=== PATIENT | male | born 1965 | race Caucasian/White ===

== ENCOUNTER 2020-12-13 17:27 | Inpatient (IN) | payer OTHER, SELFPAY ==
[2020-12-13] VITALS (8 sets, daily range): BP systolic 116–164; BP diastolic 71–95; PULSE 50–60; RESP 18–20; TEMP 36.4–36.9; O2SAT 93–100; BMI 28.5
--- NOTE | ~2020-12-13 | CT_ITS ---
EXAMINATION: CT ABDOMEN AND PELVIS WITHOUT CONTRAST CLINICAL INFORMATION: Left-sided flank pain. COMPARISON: None TECHNIQUE: Multidetector volumetric imaging was performed from the superior aspect of the liver through the pubic symphysis. Sagittal and coronal reformatted images were obtained on the technologist's workstation. This CT examination was performed using dose optimization techniques as appropriate, variously including the following: *Automated exposure control *Adjustment of mA and/or kV according to patient size (this includes techniques or standardized protocols for targeted exams where dose is matched to indication/reason for exam; i.e. extremities or head) *Use of iterative reconstruction technique DLP: 644 mGy-cm FINDINGS: LUNG BASES: The visualized lung bases are unremarkable. LIVER, GALLBLADDER, AND BILIARY TREE: The liver is normal in size, shape, and attenuation. No focal hepatic lesion or biliary ductal dilatation is present. The gallbladder is unremarkable with no evidence of radiopaque gallstones, gallbladder wall thickening, or obvious pericholecystic inflammatory changes. PANCREAS: Unremarkable. SPLEEN: Unremarkable. ADRENAL GLANDS: Unremarkable. KIDNEYS AND URETERS: Left kidney: There is moderate hydronephrosis of left kidney with distention renal pelvis calyces and left ureter to the ureterovesical junction. There is an obstructing 5 mm stone at the left ureterovesical junction. There is a less than 1 mm stone at the mid upper pole of left kidney. No additional calculi present. The left kidney is edematous due to the hydronephrosis with mild edema in the perinephric space is well. There is a cortical cyst at the midpole measuring 1.9 cm. Density 5 Hounsfield units. No follow-up imaging is recommended for simple renal cyst. Right kidney: The right kidney is normal in size and contour. No hydronephrosis. There are 3 small stones clustered at the lower pole measuring 1 to 3 mm in size. There are no ureteral stones. BLADDER: Unremarkable. GASTROINTESTINAL TRACT: There are a few scattered diverticula of the sigmoid colon. There is no diverticulitis. There is no bowel wall thickening /edema. There is no bowel obstruction. There is a moderate volume of stool in the colon. The appendix is nonvisualized . The small bowel loops are unremarkable. The stomach is normal. There is no hiatal hernia. ABDOMINAL WALL: No significant hernia is appreciated. LYMPH NODES: Normal. VASCULAR: Unremarkable. PELVIC VISCERA: Unremarkable. OSSEOUS STRUCTURES: Unremarkable. CT/CT abdomen pelvis wo con IMPRESSION: 1. Moderate hydronephrosis of the left kidney due to an obstructing 5 mm stone at the left ureterovesical junction. 2. Small nonobstructive renal stones in each kidney.
--- NOTE | ~2020-12-13 | XR_ITS ---
EXAMINATION: XR CHEST CLINICAL INFORMATION: Cough and sore throat COMPARISON: Chest x-ray on 04/07/2012 TECHNIQUE: Frontal view of the chest was obtained. FINDINGS: The cardiac silhouette is normal. There is mild diffuse bronchial wall thickening. There are no areas of consolidation. There are no pleural effusions or pneumothoraces. The bones and soft tissues are unremarkable for the patient's age. XR/XR chest 1V IMPRESSION: Wall thickening may be infectious and/or inflammatory in etiology.
[2020-12-13 17:57] LABS: COVID-19 Test Negative (Negative); IDNOW Serial# 9DD0AD1C
--- NOTE | 2020-12-13 18:39 | ED.ABDPAIN ---
HPI - Abdominal Pain General Chief Complaint: Abdominal Pain Stated Complaint: FLANK PAIN Time Seen by Provider: 12/13/20 18:00 Source: patient Mode of arrival: ambulatory Limitations: no limitations History of Present Illness HPI narrative: 55-year-old male presenting to the ED with his son at bedside who has a past medical history of diverticulitis and hemorrhoids presenting to the ED with complaints of left flank/left lower quadrant/left suprapubic pain abdominal pain that started a few hours prior to arrival with associated nausea/vomiting and diarrhea. He also reports a sore throat and productive cough for the past week. Denies having the COVID vaccine. Denies any fevers, chills, dizziness, headaches, neck pain/stiffness, chest pain or shortness of breath consciousness or syncope orthopnea, palpitations, trouble swallowing or breathing, rashes, back pain, dysuria, hematuria, abnormal penile discharge, black or bloody stools, recent travel or sick contacts or any other symptoms complaints or concerns at this time. MD elicited complaint: abdominal pain and flank pain Pertinent past history: diverticulitis Onset (ago): hour(s) (Prior to arrival) Pain Consistency: intermittent Location: L flank Severity: severe Quality: stabbing, aching and sharp Radiation: LLQ and suprapubic Exacerbating factors: nothing Relieving factors: nothing Associated symptoms: nausea, vomiting, diarrhea and other (Sore throat and cough) Related Data Allergies Allergy/AdvReac Type Severity Reaction Status Date / Time No Known Allergies Allergy Verified 12/13/20 17:33 Review of Systems Review of Systems Constitutional : No Weight loss, No Fever, No Chills, No Night Sweats, No Fatigue, NoMalaise ENT/Mouth: Positive sore throat, No ear pain, No Difficulty swallowing Cardiovascular : No Chest Pain, No SOB, No Dyspnea on Exertion, No Orthopnea, NoEdema, No Palpitations Respiratory : Positive Cough, positive Sputum, No Wheezing, No Dyspnea Gastrointestinal : Positive Nausea, positive Vomiting, positive abdominal pain, positive Diarrhea, No blood streaked emesis, No coffee-ground emesis, No gross hematemesis, No blood streak stool, No gross hematochezia, No Melena Genitourinary : No irregular bleeding, No Dysuria, No Urinary Frequency, No Hematuria,No Urinary Incontinence, No Urgency, No Flank Pain Musculoskeletal : No joint pain, No Myalgias, No Joint Swelling Skin : No Skin Lesions, No rash Neuro : No Weakness, No Numbness, No Paresthesias, No Loss of Consciousness, NoDizziness, No Headache Psych : No Social Issues, Heme/Lymph: No Bruising, No Bleeding,No Lymphadenopathy Endocrine : No Polyuria, No Polydipsia, No Temperature Intolerance Yes all other systems are reviewed and are negative Physical Exam Vital Signs: Vital Signs: Last Vital Signs Temp 98.4 F 12/13/20 19:41 Pulse 52 12/13/20 19:41 Resp 20 12/13/20 19:41 BP 133/78 12/13/20 19:41 Pulse Ox 95 12/13/20 19:41 Body Mass Index 28.5 vital signs have been reviewed as normal and appeared to be correct. Blood pressure normal. Heart rate normal. Respiration rate normal. Temperature normal. Oxygen saturation normal. Appearance: Alert. Oriented X3. No acute distress. Head: Normal external exam. Normocephalic. Eyes: PERRLA. EOMI. Conjunctiva and sclera normal. Eyelids normal. ENT: Pharynx normal. Uvula midline. Moist mucous membranes. No trismus noted. No drooling noted. No muffled voice noted. Neck: Normal inspection. Neck supple. FROM. No adenopathy. No meningeal signs. CVS: Normal heart rate and rhythm. Heart sound normal. No murmurs noted. Pulses normal throughout. Respiratory: No respiratory distress. Painless inspiration. Breath sounds normal. No wheezes/rales/rhonchi noted. Chest nontender. No accessory muscle usage noted or decreased air movement noted. Abdomen: Soft and mild tenderness palpation to left flank/left lower quadrant/suprapubic area. Nondistended. No guarding. No rigidity. Bowel sounds normal in all 4 quadrants. No distention noted. No organomegaly noted. No visible injury noted. No rebound tenderness. Negative Rovsing sign. Negative obturator's sign. Negative psoas sign. Negative Dawkins sign. Back: Positive left CVA tenderness. No right CVA tenderness is noted. Full range of motion noted. Skin: Skin warm and dry. Normal skin color. Normal skin turgor. No rashes/lesions/lacerations noted. Extremities: Extremities exhibit normal range of motion. Extremities nontender. Neuro: Oriented X 3. No motor deficit. No sensory deficit. Reflexes normal. Normal steady gait. Course Course Course Narrative: 18pm - 55-year-old male presenting to the ED with his son at bedside who has a past medical history of diverticulitis and hemorrhoids presenting to the ED with complaints of left flank/left lower quadrant/left suprapubic pain abdominal pain that started a few hours prior to arrival with associated nausea/vomiting and diarrhea. He also reports a sore throat and productive cough for the past week. Denies having the COVID vaccine. Denies any fevers, chills, dizziness, headaches, neck pain/stiffness, chest pain or shortness of breath consciousness or syncope orthopnea, palpitations, trouble swallowing or breathing, rashes, back pain, dysuria, hematuria, abnormal penile discharge, black or bloody stools, recent travel or sick contacts or any other symptoms complaints or concerns at this time. Plan: Labs, chest x-ray, COVID/RSV/flu swab, rapid strep and CT scan abdomen pelvis without IV contrast. Provide a L of IV fluids with 4 mg of Zofran, 4 mg of morphine and 30 mg of Toradol then re-evaluate. Reevaluation(s) Reevaluation #1: - labs reviewed and [place] [address]. Mild anemia with an H&H of 13.7/40.1. Random glucose 118. Total protein 6.1. UA revealed blood and 40 ketones otherwise patient is not having any gross hematuria. COVID swab is negative. - chest x-ray revealed bronchial wall thickening otherwise no other acute processes were noted. - CT scan abdomen pelvis with without IV contrast revealed moderate hydronephrosis of the left kidney due to an obstructing 5 mm stone at the left UVJ - therefore I consulted with Dr. Carvalho and he reported the patient not able to tolerate p.o. fluids and he should be admitted to medicine recommended starting the patient on steroids and Flomax and treat his pain - therefore I consulted with Dr. Love who will admit at this time. Patient understands agrees with this plan. Time: 19:50 MDM - Abdominal Pain Medical Records Attestation: I reviewed the patient's medical records. Lab Data Attestation: I reviewed the patient's lab results. Result diagrams: 12/13/20 18:59 12/13/20 18:59 Labs: Lab Results 12/13/20 12/13/20 12/13/20 Range/Units 17:39 18:59 18:59 WBC 15.0 H (4.8-10.8) X10*3/uL RBC 4.27 L (4.60-5.80) X10*6/uL Hgb 13.7 L (14.0-18.0) g/dl Hct 40.1 L (42-52) % MCV 93.9 (80-98) fL MCH 32.1 (27.0-33.0) pg MCHC 34.2 (31.0-36.0) g/dl RDW 12.4 (11.0-16.0) % Plt Count 210 (160-400) X10*3/uL MPV 10.5 (9.4-12.4) fL Immature Gran % (Auto) 0.4 (0.0-0.4) % Neut % (Auto) 73.9 H (45-73) % Lymph % (Auto) 18.1 L (20-40) % [place] % (Auto) 7.1 (2-11) % Eos % (Auto) 0.3 (0-4) % Baso % (Auto) 0.2 (0-2) % Lymph # (Auto) 2.7 (1.2-4.9) X10*3/uL [place] # (Auto) 1.1 (0.1-1.2) X10*3/uL Eos # (Auto) 0.1 (0.0-0.4) X10*3/uL Baso # (Auto) 0.0 (0.0-0.2) X10*3/uL Abs Immat Gran (auto) 0.06 H (0.00-0.03) X10*3/uL Absolute Neuts (auto) 11.1 H (2.0-8.3) X10*3/uL Absolute Nucleated RBC 0.000 (0.0-0.012) X10*3/uL Nucleated RBC % (auto) 0.0 (0.0-0.2) /100WBC PT (9.9-13.0) SEC INR (0.9-1.1) Sodium (135-145) mmol/L Potassium (3.3-5.1) mmol/L Chloride (96-108) mmol/L Carbon Dioxide (22-29) mmol/L Anion Gap (12-20) BUN (9-16) mg/dL Creatinine (0.5-1.4) mg/dL Estim Creat Clear Calc Estimated GFR Random Glucose (60-115) mg/dL Calcium (8.4-10.2) mg/dL Magnesium (1.6-2.6) mg/dL Total Bilirubin (0.0-1.0) mg/dL AST (5-37) U/L ALT (0-40) U/L Alkaline Phosphatase (39-117) U/L Total Protein (6.5-8.0) g/dL Albumin (3.5-5.0) g/dL Urine Color YELLOW Urine Appearance CLEAR Urine pH 5.5 (5.0-8.0) Ur Specific [place] >= 1.030 H (1.005-1.025) Urine Protein NEG (NEG-TRACE) MG/DL Urine Glucose (UA) NEG (NEG) MG/DL Urine Ketones 40 (NEG) MG/DL Urine Blood 3+ H (NEG) Urine Nitrite NEG (NEG) Ur Leukocyte Esterase NEG (NEG) Urine RBC 5-9 H (0) /HPF Urine WBC 0 (0-4) /HPF Ur Squamous Epith Cells TRACE /LPF Talc Crystals TRACE /LPF Urine Bacteria TRACE /LPF Urine Mucus TRACE /LPF COVID-19 (MILLIE) Negative (Negative) COVID-19 Clin Com See Note 12/13/20 12/13/20 Range/Units 18:59 18:59 WBC (4.8-10.8) X10*3/uL RBC (4.60-5.80) X10*6/uL Hgb (14.0-18.0) g/dl Hct (42-52) % MCV (80-98) fL MCH (27.0-33.0) pg MCHC (31.0-36.0) g/dl RDW (11.0-16.0) % Plt Count (160-400) X10*3/uL MPV (9.4-12.4) fL Immature Gran % (Auto) (0.0-0.4) % Neut % (Auto) (45-73) % Lymph % (Auto) (20-40) % [place] % (Auto) (2-11) % Eos % (Auto) (0-4) % Baso % (Auto) (0-2) % Lymph # (Auto) (1.2-4.9) X10*3/uL [place] # (Auto) (0.1-1.2) X10*3/uL Eos # (Auto) (0.0-0.4) X10*3/uL Baso # (Auto) (0.0-0.2) X10*3/uL Abs Immat Gran (auto) (0.00-0.03) X10*3/uL Absolute Neuts (auto) (2.0-8.3) X10*3/uL Absolute Nucleated RBC (0.0-0.012) X10*3/uL Nucleated RBC % (auto) (0.0-0.2) /100WBC PT 12.3 (9.9-13.0) SEC INR 1.1 (0.9-1.1) Sodium 142 (135-145) mmol/L Potassium 3.5 (3.3-5.1) mmol/L Chloride 106 (96-108) mmol/L Carbon Dioxide 26 (22-29) mmol/L Anion Gap 14 (12-20) BUN 14 (9-16) mg/dL Creatinine 1.05 (0.5-1.4) mg/dL Estim Creat Clear Calc 91.5 Estimated GFR > 60 Random Glucose 118 H (60-115) mg/dL Calcium 8.8 (8.4-10.2) mg/dL Magnesium 2.0 (1.6-2.6) mg/dL Total Bilirubin 0.4 (0.0-1.0) mg/dL AST 24 (5-37) U/L ALT 14 (0-40) U/L Alkaline Phosphatase 63 (39-117) U/L Total Protein 6.1 L (6.5-8.0) g/dL Albumin 3.8 (3.5-5.0) g/dL Urine Color Urine Appearance Urine pH (5.0-8.0) Ur Specific [place] (1.005-1.025) Urine Protein (NEG-TRACE) MG/DL Urine Glucose (UA) (NEG) MG/DL Urine Ketones (NEG) MG/DL Urine Blood (NEG) Urine Nitrite (NEG) Ur Leukocyte Esterase (NEG) Urine RBC (0) /HPF Urine WBC (0-4) /HPF Ur Squamous Epith Cells /LPF Talc Crystals /LPF Urine Bacteria /LPF Urine Mucus /LPF COVID-19 (MILLIE) (Negative) COVID-19 Clin Com Imaging Data Chest x-ray: Attestation: I personally reviewed and interpreted this imaging study as follows: Radiologist's impression: FINDINGS: The cardiac silhouette is normal. There is mild diffuse bronchial wall thickening. There are no areas of consolidation. There are no pleural effusions or pneumothoraces. The bones and soft tissues are unremarkable for the patient's age. XR/XR chest 1V IMPRESSION: Wall thickening may be infectious and/or inflammatory in etiology. CT scan abdomen pelvis without IV contrast: Attestation: I personally reviewed and interpreted this imaging study as follows: Radiologist's impression: FINDINGS: LUNG BASES: The visualized lung bases are unremarkable.? LIVER, GALLBLADDER, AND BILIARY TREE: The liver is normal in size, shape, and attenuation. No focal hepatic lesion or biliary ductal dilatation is present. The gallbladder is unremarkable with no evidence of radiopaque gallstones, gallbladder wall thickening, or obvious pericholecystic inflammatory changes.? PANCREAS: Unremarkable.? SPLEEN: Unremarkable.? ADRENAL GLANDS: Unremarkable.? KIDNEYS AND URETERS: Left kidney: There is moderate hydronephrosis of left kidney with distention renal pelvis calyces and left ureter to the ureterovesical junction. There is an obstructing 5 mm stone at the left ureterovesical junction. There is a less than 1 mm stone at the mid upper pole of left kidney. No additional calculi present. The left kidney is edematous due to the hydronephrosis with mild edema in the perinephric space is well. There is a cortical cyst at the midpole measuring 1.9 cm. Density 5 Hounsfield units. No follow-up imaging is recommended for simple renal cyst. Right kidney: The right kidney is normal in size and contour. No hydronephrosis. There are 3 small stones clustered at the lower pole measuring 1 to 3 mm in size. There are no ureteral stones. BLADDER: Unremarkable.? GASTROINTESTINAL TRACT: There are a few scattered diverticula of the sigmoid colon. There is no diverticulitis. There is no bowel wall thickening /edema. There is no bowel obstruction. There is a moderate volume of stool in the colon. The appendix is nonvisualized . The small bowel loops are unremarkable. The stomach is normal. There is no hiatal hernia.? ABDOMINAL WALL: No significant hernia is appreciated.? LYMPH NODES: Normal. VASCULAR: Unremarkable. PELVIC VISCERA: Unremarkable.? OSSEOUS STRUCTURES: Unremarkable.? CT/CT abdomen pelvis wo con IMPRESSION: ? 1. Moderate hydronephrosis of the left kidney due to an obstructing 5 mm stone at the left ureterovesical junction. 2. Small nonobstructive renal stones in each kidney.? Critical Care Time Critical Care Time Critical Care Time: Yes Total Critical Care Time: 60 Attestation: I personally attest to this time spent taking care of the patient Discharge Plan Discharge Clinical Impression: Bronchitis, Hydronephrosis, Left ureteral stone, Nausea & vomiting Patient Disposition: Admitted As Inpatient [facility] Past Medical History Attestation statement: The following information was validated with the patient. Medical History Patient denies medical problems Social History Social History Alcohol intake: current Alcohol intake frequency: holidays/special occasions only Alcohol type: beer Patient Tobacco Use Status: Never used Tobacco Use of substances other than those prescribed or required for medical reasons: No Advance Directives: No Advance Directives Information Provided: No
[2020-12-13 19:10] LABS: MANUAL DIFF FLAG NO
[2020-12-13 19:11] LABS: Basophils Percent Auto 0.2 % (0-2); Eosinophils Absolute Auto 0.1 X10*3/uL (0.0-0.4); Eosinophils Percent Auto 0.3 % (0-4); Hematocrit 40.1 % (42-52); Hemoglobin 13.7 g/dl (14.0-18.0); Imm Gran Abs Auto 0.06 X10*3/uL (0.00-0.03); Imm Gran Pct Auto 0.4 % (0.0-0.4); Lymphocytes Absolute Auto 2.7 X10*3/uL (1.2-4.9); Lymphocytes Percent Auto 18.1 % (20-40); Mean Corpuscular HGB Conc 34.2 g/dl (31.0-36.0); Mean Corpuscular Hemoglobin 32.1 pg (27.0-33.0); Mean Corpuscular Volume 93.9 fL (80-98); Mean Platelet Volume 10.5 fL (9.4-12.4); Monocytes Absolute Auto 1.1 X10*3/uL (0.1-1.2); Monocytes Percent Auto 7.1 % (2-11); Neutrophils Absolute Auto 11.1 X10*3/uL (2.0-8.3); Neutrophils Percent Auto 73.9 % (45-73); Platelet Count 210 X10*3/uL (160-400); Red Blood Count 4.27 X10*6/uL (4.60-5.80); Red Cell Distribution Width 12.4 % (11.0-16.0)
[2020-12-13 19:12] LABS: Appearance Urine CLEAR; Color Urine YELLOW; Glucose Urine UA NEG (NEG); Leukocyte Esterase Urine NEG (NEG); Nitrite Urine NEG (NEG); PH 5.5 (5.0-8.0); Specific Gravity - Urine >= 1.030 (1.005-1.025); UACC Culture Trigger NO; Urine Blood 3+ (NEG); Urine Ketones 40 MG/DL (NEG); Urine Protein NEG (NEG-TRACE)
[2020-12-13 19:16] LABS: INTERNATIONAL NORM RATIO 1.1 (0.9-1.1); Prothrombin Time 12.3 SEC (9.9-13.0)
[2020-12-13 19:17] LABS: Mucus Urine TRACE /LPF; Squamous Epithelial Cell Urine TRACE /LPF
[2020-12-13 19:18] LABS: Bacteria Urine TRACE /LPF; WBC Urine 0 /HPF (0-4)
[2020-12-13 19:19] LABS: Urine Talc Crystals TRACE /LPF
[2020-12-13 19:28] LABS: Alanine Aminotransferase 14 U/L (0-40); Albumin Level 3.8 g/dL (3.5-5.0); Alkaline Phosphatase 63 U/L (39-117); Anion Gap 14 (12-20); Aspartate Amino Transferase 24 U/L (5-37); Bilirubin Total 0.4 mg/dL (0.0-1.0); Blood Urea Nitrogen 14 mg/dL (9-16); Calcium 8.8 mg/dL (8.4-10.2); Carbon Dioxide 26 mmol/L (22-29); Chloride 106 mmol/L (96-108); Creatinine Clr Calc Pharmacy 91.5; Estimated Glomerular Filt Rate > 60; Glucose Random 118 mg/dL (60-115); Potassium 3.5 mmol/L (3.3-5.1); Sodium 142 mmol/L (135-145); Total Protein 6.1 g/dL (6.5-8.0)
[2020-12-13] MEDS: 0.9 % Sodium Chloride 1,000 ML 999 ML IVCONT (19:36)
[2020-12-13] MEDS: Ketorolac Tromethamine 15 MG/ML VIAL 30 MG IVPUSH (19:36)
[2020-12-13] MEDS: ondansetron HCL 4 MG/2 ML VIAL IVPUSH (19:36)
[2020-12-13] MEDS: Morphine Sulfate 4 MG/ML CARTRIDGE IVPUSH (19:37)
--- NOTE | 2020-12-13 19:53 | P.HPHOSP_ITS ---
History of Present Illness Date of Service: 12/13/20 Chief Complaint: Left flank pain 55-year-old male with a past medical history of diverticulitis presented to the hospital with a chief complaint of left flank pain for the past couple days; Patient reports that he has been having left flank pain associated nausea and vomiting; denies any blood in the vomitus; denies any gross hematuria; Patient reports that symptoms started this afternoon; pain located on the left flank; denies any burning or frequency with urination; pain is 10/10 in intensity but currently improving. Reports he has been having cough with yellowish sputum over the past few days also feels like having sore throat. Denies any dysphagia or odynophagia. denies any recent travel or sick contacts. Denies any chest pain palpitations lightheadedness or dizziness. Denies any fever chills. Reports cough with sputum production. Denies any sick contacts. Review of all other systems is negative except mentioned above ER course: Per ER team patient's chest x-ray showed bronchial wall thickening; no consolidation; given doxycycline for possible bronchitis; Also in the CT abdomen which showed 5 mm kidney stone with hydronephrosis; discu ssed with Dr. carreon who recommended admission to the medicine service and to give steroidsx1. Urinalysis showed no evidence of infection except for microscopic hematuria. Admitted for further management. [facility] Medical History Patient denies medical problems Pertinent family history: Reviewed; denies any family history of kidney stones Social History Alcohol intake: current Alcohol intake frequency: holidays/special occasions only Alcohol type: beer Patient Tobacco Use Status: Never used Tobacco Use of substances other than those prescribed or required for medical reasons: No Advance Directives: No Advance Directives Information Provided: No Meds Allergies Allergy/AdvReac Type Severity Reaction Status Date / Time No Known Allergies Allergy Verified 12/13/20 17:33 Active Medications: Current Medications Doxycycline Hyclate 100 mg/ (Sodium Chloride) 250 mls @ 166.67 mls/hr IV Q12H [facility] Pharmacy Consult (Consult Rx Perform Med Rec) 1 each MISCELLANE ONCE PRN PRN Reason: Consult order Home Medications Medication Instructions Recorded Confirmed Last Taken Type No Known Home Meds 12/13/20 12/13/20 Unknown History Physical Exam Vital Signs and Narrative: Vital Signs: Last Vital Signs Temp 98.4 F 12/13/20 19:41 Pulse 52 12/13/20 19:41 Resp 20 12/13/20 19:41 BP 133/78 12/13/20 19:41 Pulse Ox 95 12/13/20 19:41 Body Mass Index 28.5 Gen: Appears be in no acute distress HEENT: NCAT, Moist mucosa. Throat is clear Pulmonary: Vesicular breath sounds, fair air entry CVS: Normal S1-S2 Abdomen: BS+, Soft, tender in the left flank; no guarding no rigidity Extremities: Warm well perfused Neuro: Alert and awake. Results Labs CBC and Chem 7: 12/13/20 18:59 12/13/20 18:59 Labs: Laboratory Results - last 24 hr 12/13/20 12/13/20 12/13/20 17:39 18:59 18:59 MCV 93.9 MCH 32.1 MCHC 34.2 RDW 12.4 Plt Count 210 MPV 10.5 Immature Gran % (Auto) 0.4 Neut % (Auto) 73.9 H Lymph % (Auto) 18.1 L [place] % (Auto) 7.1 Eos % (Auto) 0.3 Baso % (Auto) 0.2 Lymph # (Auto) 2.7 [place] # (Auto) 1.1 Eos # (Auto) 0.1 Baso # (Auto) 0.0 Abs Immat Gran (auto) 0.06 H Absolute Neuts (auto) 11.1 H Absolute Nucleated RBC 0.000 Nucleated RBC % (auto) 0.0 PT INR Anion Gap Estim Creat Clear Calc Estimated GFR Random Glucose Calcium Magnesium Total Bilirubin AST ALT Alkaline Phosphatase Total Protein Albumin Urine Color YELLOW Urine Appearance CLEAR Urine pH 5.5 Ur Specific [place] >= 1.030 H Urine Protein NEG Urine Glucose (UA) NEG Urine Ketones 40 Urine Blood 3+ H Urine Nitrite NEG Ur Leukocyte Esterase NEG Urine RBC 5-9 H Urine WBC 0 Ur Squamous Epith Cells TRACE Talc Crystals TRACE Urine Bacteria TRACE Urine Mucus TRACE COVID-19 (MILLIE) Negative COVID-19 Clin Com See Note 12/13/20 12/13/20 18:59 18:59 MCV MCH MCHC RDW Plt Count MPV Immature Gran % (Auto) Neut % (Auto) Lymph % (Auto) [place] % (Auto) Eos % (Auto) Baso % (Auto) Lymph # (Auto) [place] # (Auto) Eos # (Auto) Baso # (Auto) Abs Immat Gran (auto) Absolute Neuts (auto) Absolute Nucleated RBC Nucleated RBC % (auto) PT 12.3 INR 1.1 Anion Gap 14 Estim Creat Clear Calc 91.5 Estimated GFR > 60 Random Glucose 118 H Calcium 8.8 Magnesium 2.0 Total Bilirubin 0.4 AST 24 ALT 14 Alkaline Phosphatase 63 Total Protein 6.1 L Albumin 3.8 Urine Color Urine Appearance Urine pH Ur Specific [place] Urine Protein Urine Glucose (UA) Urine Ketones Urine Blood Urine Nitrite Ur Leukocyte Esterase Urine RBC Urine WBC Ur Squamous Epith Cells Talc Crystals Urine Bacteria Urine Mucus COVID-19 (MILLIE) COVID-19 Clin Com Imaging Radiologist's Impressions: Impressions Chest X-Ray 12/13/20 18:00 IMPRESSION: Wall thickening may be infectious and/or inflammatory in etiology. Abdomen/Pelvis CT 12/13/20 18:06 IMPRESSION: 1. Moderate hydronephrosis of the left kidney due to an obstructing 5 mm stone at the left ureterovesical junction. 2. Small nonobstructive renal stones in each kidney. Assessment and Plan (1) Kidney stone: Status: Acute (2) Bronchitis: Status: Acute 55-year-old male with a past medical history of diverticulitis presented to the hospital with a chief complaint of left flank pain; noted to have 5 mm kidney stone with hydronephrosis. Admitted for further management. Left Uretal Stone with hydronephrosis. CT scan showed:1. Moderate hydronephrosis of the left kidney due to an obstructing 5mm stone at the left ureterovesical junction.2. Small nonobstructive renal stones in each kidney. Urinalysis negative for infection. Pain control Dr. carreon aware of the patient to NPO Continue Flomax. Patient given 1 dose of steroids in the ER per recommendations from Dr. carreon. Bronchitis: Continue doxycycline. Shelton p.r.n. Patient has a history of tinnitus: On hearing aids. DVT prophylaxis: SCD boots Code status: Full code Quality Stroke Does the patient have a stroke diagnosis?: No VTE Prior VTE?: No VTE Risk Level:: Medical - low VTE Device Contraindication: N/A - Device Ordered VTE Drug Contraindication: Treatment Not Indicated
[2020-12-13 20:03] LABS: Influenza A PCR NEGATIVE (Negative); Influenza B PCR NEGATIVE (Negative); Resp Syncy Virus RNA Qual PCR NEGATIVE (Negative); SARS COV2 PCR INHOUSE NEGATIVE (Negative)
[2020-12-13] MEDS: dexAMETHasone sod phosphate 4 MG/ML VIAL 6 MG IVPUSH (20:40)
[2020-12-13] MEDS: Doxycycline Hyclate 100 MG in 0.9 % Sodium Chloride 250 ML 166.67 MG IV (20:41)
[2020-12-13] MEDS: Tamsulosin HCL 0.4 MG CAPSULE PO (20:41)
[2020-12-13] MEDS: Dextrose 5 % and 0.45 % NaCl 1,000 ML 100 ML IVCONT (22:26)
[2020-12-14 01:04] VITALS: BP 112/70; PULSE 61; RESP 18; O2SAT 95
[2020-12-14 01:22] LABS: Strep A Nucleic Acid Negative (Negative)
[2020-12-14 04:05] VITALS: BP 127/68; PULSE 55; RESP 20; TEMP 36.4; O2SAT 97
[2020-12-14 06:49] LABS: MANUAL DIFF FLAG NO
[2020-12-14 06:59] LABS: Basophils Percent Auto 0.2 % (0-2); Hematocrit 42.7 % (42-52); Hemoglobin 14.4 g/dl (14.0-18.0); Imm Gran Abs Auto 0.04 X10*3/uL (0.00-0.03); Imm Gran Pct Auto 0.3 % (0.0-0.4); Lymphocytes Absolute Auto 2.8 X10*3/uL (1.2-4.9); Lymphocytes Percent Auto 23.4 % (20-40); Mean Corpuscular HGB Conc 33.7 g/dl (31.0-36.0); Mean Corpuscular Hemoglobin 31.4 pg (27.0-33.0); Mean Platelet Volume 10.7 fL (9.4-12.4); Monocytes Absolute Auto 0.8 X10*3/uL (0.1-1.2); Monocytes Percent Auto 6.6 % (2-11); Neutrophils Absolute Auto 8.1 X10*3/uL (2.0-8.3); Neutrophils Percent Auto 69.5 % (45-73); Platelet Count 219 X10*3/uL (160-400); Red Blood Count 4.59 X10*6/uL (4.60-5.80); Red Cell Distribution Width 12.5 % (11.0-16.0); White Blood Count 11.7 X10*3/uL (4.8-10.8)
[2020-12-14 07:13] VITALS: BP 101/55; PULSE 60; RESP 19; TEMP 36.6; O2SAT 97
[2020-12-14 07:19] LABS: Anion Gap 11 (12-20); Blood Urea Nitrogen 12 mg/dL (9-16); Calcium 8.5 mg/dL (8.4-10.2); Carbon Dioxide 24 mmol/L (22-29); Chloride 108 mmol/L (96-108); Creatinine Clr Calc Pharmacy 118.6; Estimated Glomerular Filt Rate > 60; Glucose Random 156 mg/dL (60-115); Potassium 4.2 mmol/L (3.3-5.1); Sodium 139 mmol/L (135-145)
--- NOTE | 2020-12-14 07:44 | PM.UROCN ---
History of Present Illness Consult details Consult date: 12/14/20 Narrative: Ghassan is a pleasant male. Admitted through emergency room for left-sided flank pain. Pain radiating to inferior quadrant and left testicle yesterday with associated nausea and vomiting CT imaging shows a 5 mm distal left ureteric stone with associated hydroureteronephrosis Mild elevated white count Creatinine 0.81, calcium 8.5 Admitted for pain relief and IV fluids This morning states that pain is currently no longer present Appears stone may have passed Will reassess later in morning as may need ureteroscopy with stent placement Review of Systems Constitutional: Constitutional: Denies chills and Denies fever(s) Cardiovascular: Cardiovascular: Reports no additional cardiovascular complaints and Denies syncope Respiratory: Respiratory: Denies cough Gastrointestinal: Gastrointestinal: Denies abdominal pain and Denies heartburn Genitourinary: Genitourinary: Reports as per HPI and Denies change in libido Neurologic: Denies syncope Psychiatric: Psychiatric: Denies change in libido Endocrine: Endocrine: Denies change in libido [facility] Past Medical History Medical History Patient denies medical problems Social History Social History Household Members: Family Housing: House Do you presently have visiting nurse or other home services: No Alcohol intake: current Alcohol intake frequency: holidays/special occasions only Alcohol type: beer Patient Tobacco Use Status: Never used Tobacco Use of substances other than those prescribed or required for medical reasons: No Substance Use Type: Crack/Cocaine Substance Use Frequency: Weekly Last Used Substance: Weeks (ago) Last Used Substance Other:: last week Currently Displaying Signs/Symptoms of Drug Intoxication Withdrawal: No Any prior treatment program specific to substance use: No Have you been hit, kicked, punched, or otherwise hurt by someone within the past year? If so, by whom?: No Do you feel safe in your current relationship?: No Current Relationship Is there a partner from a previous relationship who is making you feel unsafe now?: No Are you made to feel afraid or neglected: No Advance Directives: No Advance Directives Information Provided: No Advance Directives on File: No Do you have thoughts of harming others: None Do you have a plan to hurt others: No Plan Recently lost weight without trying: No Eating poorly because of decreased appetite: No Nutrition Risks: No Nutritional Risk Poor oral hygiene: No Meds Allergies Allergy/AdvReac Type Severity Reaction Status Date / Time No Known Allergies Allergy Verified 12/13/20 17:33 Active Medications: Current Medications Acetaminophen (Acetaminophen 325 Mg Tablet) 650 mg PO Q6H PRN PRN Reason: Pain, Mild (Pain Scale 1-3) Albuterol/Ipratropium (Albuterol/Iprat 2.5/0.5mg 3 Ml Ampul.Neb) 3 ml INHALE RQ4H PRN PRN Reason: Shortness of Breath/Wheezing Hydromorphone HCl (Hydromorphone Hcl 0.5 Mg/0.5 Ml Syringe) 0.5 mg IVPUSH Q4H PRN; Protocol PRN Reason: Pain, Severe (Pain Scale 7-10) Doxycycline Hyclate 100 mg/ (Sodium Chloride) 250 mls @ 166.67 mls/hr IV Q12H [facility] Last Infusion: 12/13/20 22:21 Dose: Infused Documented by: Dextrose/Sodium Chloride (D51/2ns) 1,000 mls @ 100 mls/hr IVCONT .Q10H [facility] Last Admin: 12/14/20 06:17 Dose: Not Given Documented by: Melatonin (Melatonin 3 Mg Tablet) 6 mg PO BEDTIME PRN PRN Reason: Insomnia Ondansetron HCl (Ondansetron Hcl 4 Mg/2 Ml Vial) 4 mg IVPUSH Q8H PRN PRN Reason: Nausea and Vomiting Pharmacy Consult (Consult Rx Perform Med Rec) 1 each MISCELLANE ONCE PRN PRN Reason: Consult order Senna (Sennosides 8.6 Mg Tablet) 17.2 mg PO BEDTIME PRN PRN Reason: Constipation Sodium Chloride (0.9 % Sodium Chloride Flush 3 Ml Syringe) 3 ml IVFLUSH QSHIFT [facility] Last Admin: 12/14/20 00:09 Dose: Not Given Documented by: Tamsulosin HCl (Tamsulosin Hcl 0.4 Mg Capsule) 0.4 mg PO DAILY [facility] Home Medications Medication Instructions Recorded Confirmed Last Taken Type No Known Home Meds 12/13/20 12/13/20 Unknown History Physical Exam Vital Signs: Vital Signs: Last Vital Signs Temp 97.8 F 12/14/20 07:13 Pulse 60 12/14/20 07:13 Resp 19 12/14/20 07:13 BP 101/55 L 12/14/20 07:13 Pulse Ox 97 12/14/20 07:13 Body Mass Index 28.5 Const: General: cooperative, healthy appearing, comfortable and no acute distress Orientation/consciousness: patient oriented x3 HENMT: Face and sinus: Yes normal facial exam Mouth: moist mucous membranes Neck: Neck: Yes normal visual inspection, Yes full ROM and Yes trachea midline Chest: Chest palpation & inspection: normal inspection of the chest Resp: Effort & Inspection: normal respiratory effort, able to speak in complete sentences and no respiratory distress GI: Inspection: Yes normal to inspection Back/Spine/Pelvis: Cervical Spine: normal cervical lordosis Thoracic/Lumbar Spine: thoracic and lumbar spine normal to inspection Skin: General skin exam: no rashes or lesions noted Neuro: General: patient oriented x3, gait normal, tone normal and moves all extremities Extrem: General: Yes normal to inspection and Yes capillary refill normal Results Labs Result diagrams: 12/14/20 06:22 12/14/20 06:22 Labs: Abnormal lab results 12/13/20 12/13/20 12/13/20 Range/Units 18:59 18:59 18:59 WBC 15.0 H (4.8-10.8) X10*3/uL RBC 4.27 L (4.60-5.80) X10*6/uL Hgb 13.7 L (14.0-18.0) g/dl Hct 40.1 L (42-52) % Neut % (Auto) 73.9 H (45-73) % Lymph % (Auto) 18.1 L (20-40) % Abs Immat Gran (auto) 0.06 H (0.00-0.03) X10*3/uL Absolute Neuts (auto) 11.1 H (2.0-8.3) X10*3/uL Anion Gap (12-20) Random Glucose 118 H (60-115) mg/dL Total Protein 6.1 L (6.5-8.0) g/dL Ur Specific [place] >= 1.030 H (1.005-1.025) Urine Blood 3+ H (NEG) Urine RBC 5-9 H (0) /HPF 12/14/20 12/14/20 Range/Units 06:22 06:22 WBC 11.7 H (4.8-10.8) X10*3/uL RBC 4.59 L (4.60-5.80) X10*6/uL Hgb (14.0-18.0) g/dl Hct (42-52) % Neut % (Auto) (45-73) % Lymph % (Auto) (20-40) % Abs Immat Gran (auto) 0.04 H (0.00-0.03) X10*3/uL Absolute Neuts (auto) (2.0-8.3) X10*3/uL Anion Gap 11 L (12-20) Random Glucose 156 H (60-115) mg/dL Total Protein (6.5-8.0) g/dL Ur Specific [place] (1.005-1.025) Urine Blood (NEG) Urine RBC (0) /HPF Short CBC 12/13/20 12/14/20 Range/Units 18:59 06:22 WBC 15.0 H 11.7 H (4.8-10.8) X10*3/uL Hgb 13.7 L 14.4 (14.0-18.0) g/dl Hct 40.1 L 42.7 (42-52) % Plt Count 210 219 (160-400) X10*3/uL BMP 12/13/20 12/14/20 18:59 06:22 Sodium 142 139 Potassium 3.5 4.2 Chloride 106 108 Carbon Dioxide 26 24 BUN 14 12 Creatinine 1.05 0.81 Calcium 8.8 8.5 Liver Function 12/13/20 Range/Units 18:59 Total Bilirubin 0.4 (0.0-1.0) mg/dL AST 24 (5-37) U/L ALT 14 (0-40) U/L Alkaline Phosphatase 63 (39-117) U/L Albumin 3.8 (3.5-5.0) g/dL Urine 12/13/20 Range/Units 18:59 Urine Color YELLOW Urine Appearance CLEAR Urine pH 5.5 (5.0-8.0) Ur Specific [place] >= 1.030 H (1.005-1.025) Urine Protein NEG (NEG-TRACE) MG/DL Urine Glucose (UA) NEG (NEG) MG/DL All other labs normal. Assessment and Plan (1) Calculus of distal left ureter: Status: Acute (2) Hydroureteronephrosis: Status: Acute Continue monitoring through the morning If remains pain free may well be able to discharge from hospital later today If pain recurs will need intervention with ureteroscopy and stent placement Procedures Date of Service Date of Service: 12/14/20
[2020-12-14] MEDS: Doxycycline Hyclate 100 MG in 0.9 % Sodium Chloride 250 ML 166.67 MG IV (09:30)
[2020-12-14] MEDS: 0.9 % Sodium Chloride Flush 3 ML SYRINGE IVFLUSH (10:17)
[2020-12-14] MEDS: Dextrose 5 % and 0.45 % NaCl 1,000 ML 1000 ML IVCONT (10:19)
--- NOTE | 2020-12-14 10:23 | MHC.CM.PN ---
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
[2020-12-14 11:19] VITALS: BP 105/58; PULSE 62; RESP 18; TEMP 35.5; O2SAT 98
--- NOTE | 2020-12-14 11:58 | PM.DS ---
DS: Providers Provider Date of Service: 12/14/20 Date of admission: 12/13/20 19:49 Primary care physician: Niels Segura MD Consults: 12/13/20 19:48 Consult to Urology Routine Consulting Provider: Edu Carvalho Reason for consultation: 5 mm kidney stone with hydronephrosis DS: Diagnosis Discharge Diagnosis (1) Calculus of distal left ureter: Status: Acute (2) Hydroureteronephrosis: Status: Acute DS: Summary Hospital Course Hospital Course: patient was admitted for renal colic due to obstructing left ureteral stone 5mm. he was given IVF, flomax. plan was for cystoscopy, however, overnight pain resolved. stone was not seen but appears to have passed. patient will be discharged home, should drink plenty of fluids for goal of 2L of urine per day, and follow up with urology. Time Spent with Patient Time attestation: Total time spent providing and/or coordinating discharge services: Discharge coordination time: Greater than 30 minutes Quality: Stroke Does the patient have a stroke diagnosis?: No Physical Exam Vital Signs: Vital Signs: Last Vital Signs Temp 96 F L 12/14/20 11:19 Pulse 62 12/14/20 11:19 Resp 18 12/14/20 11:19 BP 105/58 L 12/14/20 11:19 Pulse Ox 98 12/14/20 11:19 Body Mass Index 28.5 General: AO X 3, no acute distress Resp: CTA bilateral, no accessory muscles used CVS: S1,S2,RRR GI: soft, non tender, non distended Neuro: motor grossly intact, alert Psych: appropriate affect, appropriate insight DS: Data Data Completed and Pending Labs on day of discharge: Laboratory Results - last 24 hr 12/13/20 12/13/20 12/13/20 17:39 18:59 18:59 WBC 15.0 H RBC 4.27 L Hgb 13.7 L Hct 40.1 L MCV 93.9 MCH 32.1 MCHC 34.2 RDW 12.4 Plt Count 210 MPV 10.5 Immature Gran % (Auto) 0.4 Neut % (Auto) 73.9 H Lymph % (Auto) 18.1 L [place] % (Auto) 7.1 Eos % (Auto) 0.3 Baso % (Auto) 0.2 Lymph # (Auto) 2.7 [place] # (Auto) 1.1 Eos # (Auto) 0.1 Baso # (Auto) 0.0 Abs Immat Gran (auto) 0.06 H Absolute Neuts (auto) 11.1 H Absolute Nucleated RBC 0.000 Nucleated RBC % (auto) 0.0 PT INR Sodium Potassium Chloride Carbon Dioxide Anion Gap BUN Creatinine Estim Creat Clear Calc Estimated GFR Random Glucose Calcium Magnesium Total Bilirubin AST ALT Alkaline Phosphatase Total Protein Albumin Urine Color YELLOW Urine Appearance CLEAR Urine pH 5.5 Ur Specific [place] >= 1.030 H Urine Protein NEG Urine Glucose (UA) NEG Urine Ketones 40 Urine Blood 3+ H Urine Nitrite NEG Ur Leukocyte Esterase NEG Urine RBC 5-9 H Urine WBC 0 Ur Squamous Epith Cells TRACE [place] TRACE Urine Bacteria TRACE Urine Mucus TRACE Coronavirus (PCR) COVID-19 (MILLIE) Negative COVID-19 Clin Com See Note Influenza Type A (PCR) Influenza Type B (PCR) RSV RNA Qual (PCR) S. pyogenes GrpA GIRISH 12/13/20 12/13/20 12/13/20 18:59 18:59 18:59 WBC RBC Hgb Hct MCV MCH MCHC RDW Plt Count MPV Immature Gran % (Auto) Neut % (Auto) Lymph % (Auto) [place] % (Auto) Eos % (Auto) Baso % (Auto) Lymph # (Auto) [place] # (Auto) Eos # (Auto) Baso # (Auto) Abs Immat Gran (auto) Absolute Neuts (auto) Absolute Nucleated RBC Nucleated RBC % (auto) PT 12.3 INR 1.1 Sodium 142 Potassium 3.5 Chloride 106 Carbon Dioxide 26 Anion Gap 14 BUN 14 Creatinine 1.05 Estim Creat Clear Calc 91.5 Estimated GFR > 60 Random Glucose 118 H Calcium 8.8 Magnesium 2.0 Total Bilirubin 0.4 AST 24 ALT 14 Alkaline Phosphatase 63 Total Protein 6.1 L Albumin 3.8 Urine Color Urine Appearance Urine pH Ur Specific [place] Urine Protein Urine Glucose (UA) Urine Ketones Urine Blood Urine Nitrite Ur Leukocyte Esterase Urine RBC Urine WBC Ur Squamous Epith Cells [place] Crystals Urine Bacteria Urine Mucus Coronavirus (PCR) NEGATIVE COVID-19 (MILLIE) COVID-19 Clin Com Influenza Type A (PCR) NEGATIVE Influenza Type B (PCR) NEGATIVE RSV RNA Qual (PCR) NEGATIVE S. pyogenes GrpA GIRISH 12/14/20 12/14/20 12/14/20 01:03 06:22 06:22 WBC 11.7 H RBC 4.59 L Hgb 14.4 Hct 42.7 MCV 93.0 MCH 31.4 MCHC 33.7 RDW 12.5 Plt Count 219 MPV 10.7 Immature Gran % (Auto) 0.3 Neut % (Auto) 69.5 Lymph % (Auto) 23.4 [place] % (Auto) 6.6 Eos % (Auto) 0.0 Baso % (Auto) 0.2 Lymph # (Auto) 2.8 [place] # (Auto) 0.8 Eos # (Auto) 0.0 Baso # (Auto) 0.0 Abs Immat Gran (auto) 0.04 H Absolute Neuts (auto) 8.1 Absolute Nucleated RBC 0.000 Nucleated RBC % (auto) 0.0 PT INR Sodium 139 Potassium 4.2 Chloride 108 Carbon Dioxide 24 Anion Gap 11 L BUN 12 Creatinine 0.81 Estim Creat Clear Calc 118.6 Estimated GFR > 60 Random Glucose 156 H Calcium 8.5 Magnesium Total Bilirubin AST ALT Alkaline Phosphatase Total Protein Albumin Urine Color Urine Appearance Urine pH Ur Specific [place] Urine Protein Urine Glucose (UA) Urine Ketones Urine Blood Urine Nitrite Ur Leukocyte Esterase Urine RBC Urine WBC Ur Squamous Epith Cells [place] Crystals Urine Bacteria Urine Mucus Coronavirus (PCR) COVID-19 (MILLIE) COVID-19 Clin Com Influenza Type A (PCR) Influenza Type B (PCR) RSV RNA Qual (PCR) S. pyogenes GrpA GIRISH Negative Discharge Plan Discharge Patient Disposition: Home, Self-Care Discharge Diagnosis: nephrolithiasis Referrals: Edu Carvalho MD [Physician] - 1 Week Niels Segura MD [Primary Care Provider] - 1 Week Discharge Medications: No Action No Known Home Meds RF: 0 Discharge Orders: Discharge Order (Routine); Ordered 12/14/20 Ordered By: Francisco Haynes Diet: advance to usual diet Activity on Discharge: As tolerated Stand Alone Forms: Patient Portal Discharge page Care Plan Goals: avoid furhter stones Health Concerns: nephrolithiasis Plan of Treatment: drink enough fluids for about 2L of urine per day. follow up with urology, if pain recurs return to ED Assessment: see above
--- NOTE | 2020-12-14 12:30 | MHC.CM.PN ---
pt dcd home no servceis
== END 2020-12-14 13:50 | disposition home or self-care (01) | DRG 465 ==
LOC: HO.ED 19:55 → HO.EDOVER 21:02 → HO.IMC 12-14 02:16
PROVIDERS: Physician Assistant Medical; Admitting Provider Hospitalist; Emergency Provider Emergency Medicine; PCP Internal Medicine; Visit Provider Internal Medicine
DX: N13.2 Hydronephrosis with renal and ureteral calculous obstruction (principal); H93.19 Tinnitus, unspecified ear; J40 Bronchitis, not specified as acute or chronic; Z20.822 Contact with and (suspected) exposure to COVID-19
CPT/HCPCS: 0241U; 36415; 71045; 74176; 80048; 80053; 81001; 83735; 85025; 85610; 87635; 87651; 99219; 99285; J1100; J1885; J2270; J2405

== ENCOUNTER 2021-01-18 16:17 | Outpatient (REF) | payer OTHER, SELFPAY ==
--- NOTE | ~2021-01-18 | US_ITS ---
EXAMINATION: US RETROPERITONEAL LIMITED (RENAL ONLY) CLINICAL INFORMATION: Calculus of ureter. COMPARISON: CT abdomen and pelvis 12/13/2020 TECHNIQUE: Real-time imaging of the kidneys. FINDINGS: RIGHT KIDNEY: 12.3 x 5.7 x 6.2 cm (SAG x AP x TRV). The kidney is normal in size, contour, and echogenicity. Renal cortical thickness is normal. No calculi or focal parenchymal lesions. No hydronephrosis. LEFT KIDNEY: 11.3 x 5.7 x 5.5 cm (SAG x AP x TRV). The kidney is normal in size, contour, and echogenicity. Renal cortical thickness is normal. No renal calculi or hydronephrosis. There is anechoic cyst in the midpole measuring 1.2 x 1.1 x 1.4 cm. US/US renal BI IMPRESSION: Anechoic cyst midpole measuring 1.2 x 1.1 x 1.4 cm. There are no echogenic stones, caliectasis or hydronephrosis.
== END 2021-01-18 16:18 | disposition home or self-care (01) ==
LOC: HO.US 16:17
PROVIDERS: PCP Internal Medicine; Visit Provider Urology
DX: N20.1 Calculus of ureter (principal)
CPT/HCPCS: 76775

== ENCOUNTER → 2021-01-27 09:58 | Outpatient (BNVA) | payer OTHER, SELFPAY | PROVIDERS: PCP Internal Medicine; Visit Provider Urology ==

== ENCOUNTER 2021-02-01 07:03 | Outpatient (REF) | payer OTHER, SELFPAY ==
[2021-02-01 08:52] LABS: COVID-19 Test Negative (Negative)
== END 2021-02-01 07:04 | disposition home or self-care (01) ==
LOC: HO.LAB 07:03
PROVIDERS: PCP Internal Medicine; Visit Provider Internal Medicine
DX: Z20.822 Contact with and (suspected) exposure to COVID-19 (principal)
CPT/HCPCS: 36415; 87635; C9803

== ENCOUNTER 2021-08-02 14:53 | Outpatient (REF) | payer OTHER, SELFPAY ==
--- NOTE | ~2021-08-02 | US_ITS ---
EXAMINATION: US RETROPERITONEAL LIMITED (RENAL ONLY) CLINICAL INFORMATION: Calculus of kidney. COMPARISON: Renal ultrasound 01/18/2021, CT abdomen and pelvis 12/13/2020 TECHNIQUE: Real-time imaging of the kidneys. FINDINGS: RIGHT KIDNEY: 12.7 x 6.3 x 5.0 cm (SAG x AP x TRV). The kidney is normal in size, contour, and echogenicity. Renal cortical thickness is normal. There is a 3 mm stone in the lower pole. No mass or hydronephrosis. LEFT KIDNEY: 11.7 x 6.9 x 5.2 cm (SAG x AP x TRV). The kidney is normal in size, contour, and echogenicity. Renal cortical thickness is normal. There are 3 left renal cysts measuring 1.6 cm in the midpole, 1.2 x 0.9 x 1 cm in the lower pole 0.8 x 0.6 x 0.7 cm in the lower pole. No renal calculi, mass or hydronephrosis. US/US renal BI IMPRESSION: Small right renal stone. Left renal cysts.
== END 2021-08-02 14:54 | disposition home or self-care (01) ==
LOC: HO.HMGCX 14:53
PROVIDERS: PCP Internal Medicine; Visit Provider Urology
DX: N20.0 Calculus of kidney (principal)
CPT/HCPCS: 76775